=== PATIENT | female | born 2000 | race Caucasian/White ===

== ENCOUNTER 2019-09-28 10:06 | Emergency (ER) | payer OTHER, SELFPAY ==
[2019-09-28] VITALS (9 sets, daily range): BP systolic 126–153; BP diastolic 83–108; PULSE 54–81; RESP 15–23; TEMP 36.7; O2SAT 96–100
--- NOTE | ~2019-09-28 | CT_ITS ---
EXAMINATION: CT abdomen pelvis w con EXAM DATE: 09/28/2019 11:26 INDICATION: Right lower quadrant pain. TECHNIQUE: Spiral CT of the abdomen and pelvis was performed following intravenous injection of 100 m L Omnipaque 350. Axial, coronal and sagittal images were reviewed. The dose-length product (DLP) fo r this examination was 263.22 mGy-cm. The exposure was tailored according to patient size (auto mA e xposure control), and iterative reconstruction (ASIR) was used as additional dose reduction technique . There is no prior study for comparison. FINDINGS: There is moderate nonspecific periportal edema. No focal liver lesions portal or hepatic ve nous thrombosis. Spleen, adrenal glands are unremarkable. Gallbladder is unremarkable. No biliary o bstruction. There is a 4 mm calcification in the right side of the pelvis probably a distal right ure teral stone, about 2 cm from the ureterovesicular junction as seen on axial image 149. There is mild right-sided hydronephrosis, and delayed right-sided nephrogram with moderate perinephric fat strandin g. The uterus is anteverted and morphologically normal. The bladder is unremarkable. There is no r etroperitoneal or pelvic lymphadenopathy. Possible identification of an unremarkable appendix. No pericecal inflammation. The stomach and smal l bowel are unremarkable. There is expected amount of colonic stool. No free intraperitoneal gas. The heart is normal in size. There are no pericardial or pleural effusions. The lung bases are un remarkable. The bones are unremarkable. IMPRESSION: 1. Probable right distal ureteral 4 mm stone. Mild hydronephrosis, delayed nephrogram, evidence of o bstructive nephropathy. 2. Moderate nonspecific periportal edema. Reviewed, dictated and finalized at location A. IMPRESSION: 1. Probable right distal ureteral 4 mm stone. Mild hydronephrosis, delayed nep hrogram, evidence of obstructive nephropathy. 2. Moderate nonspecific periportal edema.
--- NOTE | 2019-09-28 10:15 | ED.GENADULT ---
HPI - General Adult General Chief complaint: Nausea/Vomiting/Diarrhea Stated complaint: N/V/D X1D Time Seen by Provider: 09/28/19 10:12 Source: patient Mode of arrival: ambulatory Limitations: no limitations History of Present Illness HPI narrative: Patient is a 18-year-old female who reports to the emergency department referred from [place] urgent [facility] for evaluation of right lower quadrant abdominal pain and right flank pain. Rated 7 out of 10 in severity, dull, aching in nature, at times it is sharp it is worse with movement. No fever or chills, does report some nausea. No diarrhea or constipation. Patient reports hematuria, currently menstruating. She denies any dysuria, no vaginal discharge. Related Data Home Medications Medication Instructions Recorded Confirmed ondansetron 09/28/19 pantoprazole [Protonix] mg 09/28/19 Allergies Allergy/AdvReac Type Severity Reaction Status Date / Time No Known Allergies Allergy Verified 09/28/19 10:21 Review of Systems Review of Systems: Narrative: CONSTITUTIONAL: Denies fever, chills, or sweats. ENT: Denies rhinorrhea, congestion, sore throat, or otalgia. CARDIOVASCULAR: Denies chest pain, palpitations, or edema. RESPIRATORY: Denies cough or dyspnea. GASTROINTESTINAL: Reports abdominal pain, nausea GENITOURINARY: Denies dysuria SKIN: Denies rash or itching. MUSCULOSKELETAL: Denies back pain, joint pain, or myalgia. NEUROLOGIC: Denies headache, numbness, or weakness. [facility] Social History Social History Gender identity (if verbalized by the patient): Female Exam Narrative: Exam Narrative: GENERAL: Awake, alert, conversant, uncomfortable. HEAD: Normocephalic, atraumatic. EYES: PERRLA and EOMI. ENT: Nares clear, no rhinorrhea or epistaxis. Mucous membranes moist. NECK: Supple. CHEST: No respiratory distress, breathing even and non labored HEART: Regular rate, sinus rhythm ABDOMEN:Non distended, ttp in RLQ, positive right flank tenderness EXTREMITIES: Normal range of motion. No edema. SKIN: Warm, dry, no rash. NEURO:No focal deficits. Alert and oriented x3 Course Vital Signs Vital signs: Vital Signs Temperature 36.7 C 09/28/19 10:15 Pulse Rate 64 09/28/19 10:15 Respiratory Rate 23 H 09/28/19 10:15 Blood Pressure 127/83 09/28/19 10:15 Pulse Oximetry 100 09/28/19 10:15 Temperature 36.7 C 09/28/19 10:15 Pulse Rate 54 L 09/28/19 12:01 Respiratory Rate 16 09/28/19 12:01 Blood Pressure 137/87 09/28/19 12:01 Pulse Oximetry 96 09/28/19 12:01 Medical Decision Making MDM Narrative Medical decision making narrative: Patient presented for evaluation of abdominal pain and flank pain from an urgent care. At the time of assessment, ABCs are intact and vital signs are stable. Patient with right lower quadrant tenderness and right flank tenderness on exam. Laboratory results are reassuring. No electrolyte derangement, no acute kidney injury, no UTI. CT scan reveals 4 mm right-sided ureteral stone. Mild hydronephrosis. Patient felt much improved following IV fluids, antiemetic. She is able to tolerate oral intake. Discussed with patient at length regarding course of symptoms, instructions for follow-up, she was given urology follow-up and discharged home in stable condition advised to return should her pain recur or worsen. Differential Diagnosis Differential Diagnosis: Kidney infection, UTI, nephrolithiasis, appendicitis Medical Records Medical records reviewed: Yes I reviewed the patient's medical records. Vital Signs Vital Signs: Vital Signs Temperature 36.7 C 09/28/19 10:15 Pulse Rate 64 09/28/19 10:15 Respiratory Rate 23 H 09/28/19 10:15 Blood Pressure 127/83 09/28/19 10:15 Pulse Oximetry 100 09/28/19 10:15 Temperature 36.7 C 09/28/19 10:15 Pulse Rate 54 L 09/28/19 12:01 Respiratory Rate 16 09/28/19 12:01 Blood Pressure 137/87 09/28/19 12:01 Pulse Oximetry 96 09/28/19 12:01 Lab Data
[2019-09-28] MEDS: ONDANSETRON INJ 4 MG/2 ML VIAL IV PUSH (10:37)
[2019-09-28] MEDS: SODIUM CHLORIDE 0.9% IV 1,000 ML 999 ML IV CONT (10:37)
[2019-09-28] MEDS: MORPHINE SULFATE 4 MG/ML INJ IV PUSH (10:38)
[2019-09-28 10:52] LABS: Basophils Percent Auto 0.1 % (0.2-1.2); Eosinophils Percent Auto 0.2 % (0-4.4); Hematocrit 37.5 % (37.0-47.0); Hemoglobin 12.6 g/dL (12.0-15.0); Immature Granulocyte Absolute 0.03 K/mm3 (0.00-0.031); Immature Granulocyte Percent A 0.3 % (0-0.5); Lymphocytes Percent Auto 11.9 % (18.3-44.2); Mean Corpuscular HGB Conc 33.6 g/dl (32-36); Mean Corpuscular Hemoglobin 28.1 pg (26-34); Mean Corpuscular Volume 83.7 fl (80-100); Mean Platelet Volume 10.3 fl (7.4-10.4); Monocytes Absolute Auto 0.4 K/mm3 (0.1-0.6); Monocytes Percent Auto 4.3 % (2.6-8.5); Neutrophils Absolute Auto 7.7 K/mm3 (1.3-6.7); Neutrophils Percent Auto 83.2 % (45.5-73.1); Platelet Count Result 210 k/mm3 (150-375); Red Blood Count 4.48 M/mm3 (4.2-5.4); Red Cell Distribution Width 12.9 % (11.5-14.5); White Blood Count 9.2 K/mm3 (4.5-10.0)
[2019-09-28 10:58] LABS: Add Urine Microscopic? YES; Appearance Urine Cloudy (Clear); Bilirubin Urine Negative (Negative); Blood Urine 3+ (Negative); Color Urine Yellow (Yellow); Glucose Urine UA Negative (Negative); Ketones Urine Negative (Negative); Leukocyte Esterase Ur Trace LEU/UL (Negative); Mucus Urine Rare /lpf; Nitrate Urine Negative (Negative); Protein Urine 2+ mg/dL (Negative); RBC Urine >75 /hpf (0-2); Specific Grav Ur 1.024 (1.001-1.035); Squamous Epithelial Cell Urine Many /hpf (Few); Urobilinogen Urine Negative mg/dL (<2.0); WBC Urine 21-30 /hpf
[2019-09-28 11:05] LABS: Alanine Aminotransferase 13 U/L (4-35); Albumin Level 4.6 g/dL (3.7-5.6); Alkaline Phosphatase 80 U/L (45-116); Aspartate Amino Transferase 22 U/L (14-36); Bilirubin,Total 0.4 mg/dL (0.2-1.3); Blood Urea Nitrogen 13 mg/dL (8-21); Calcium 9.4 mg/dL (8.9-10.7); Carbon Dioxide 22 mmol/L (22-30); Chloride 104 mmol/L (98-107); Estimated CRCL calculation 66 ml/min; Estimated Glomerular Filt Rate > 60; Glucose 127 mg/dL (65-105); Potassium 3.9 mmol/L (3.4-5.0); Sodium 135 mmol/L (134-143)
[2019-09-28] MEDS: KETOROLAC 15 MG/ML VIAL (*BKC) IV PUSH (11:55)
--- NOTE | 2019-09-28 11:56 | PC.NURSE ---
Pt assisted back from bathroom, states she feels that she is emptying more from her bladder at present.
[2019-09-28 12:31] LABS: Lipase 49 U/L (23-300)
--- NOTE | 2019-09-28 12:34 | PC.NURSE ---
Pt resting comfortably on stretcher, states pain has improved at present. Ice chips po.
== END 2019-09-28 13:12 | disposition home or self-care (01) ==
PROVIDERS: Emergency Provider Emergency Medicine
DX: N23 Unspecified renal colic (principal); N13.30 Unspecified hydronephrosis
CPT/HCPCS: 36415; 74177; 80053; 81001; 81025; 83690; 85025; 87086; 87088; 96361; 96374; 96375; 99284; J1885; J2270; J2405; J3010; J7030; Q9967

== ENCOUNTER 2019-12-17 11:40 | Outpatient (CLI) | payer OTHER, SELFPAY ==
--- NOTE | ~2019-12-17 | XR_ITS ---
EXAMINATION: XR abdomen/kub 1V EXAM DATE: 12/17/2019 12:04 INDICATION: Right ureteral stone. TECHNIQUE: Frontal projection of the upper abdomen, frontal projection lower abdomen/pelvis for inter pretation. Correlation is made to prior CT examination from 09/28/2019. FINDINGS: There is expected amount of colonic stool and gas. No small bowel dilation, nonobstructiv e bowel gas pattern. There are no suspicious calcifications identified. There is no organomegaly suspected. The bones are unremarkable. There is no free intraperitoneal air. The lung bases are clear. IMPRESSION: Unremarkable abdomen x-ray exam. Reviewed, dictated and finalized at location A.
== END 2019-12-17 11:41 | disposition home or self-care (01) ==
LOC: ANHIMG 11:47
PROVIDERS: PCP Urology; Visit Provider Urology
DX: N20.1 Calculus of ureter (principal)
CPT/HCPCS: 74018

== ENCOUNTER 2020-12-28 11:03 | Emergency (ER) | payer OTHER, SELFPAY ==
--- NOTE | 2020-12-28 11:08 | ED.URI ---
HPI - URI/Sore Throat General Chief Complaint: Upper Respiratory Infection Stated Complaint: cough/runny nose/itching throat Time Seen by Provider: 12/28/20 11:08 Source: patient and RN notes reviewed History of Present Illness HPI Narrative: Patient is a 20-year-old female who presents the urgent care with complaints of sore throat, runny nose and cough. Patient states that started 2 days ago and she has been taking Mucinex and Claritin. Patient has had a Covid vaccine and denies of any recent exposures to strep or Covid. Denies of any fever, chills, nausea, vomiting. Patient states that she does have typical allergies . No other acute complaints. No acute distress noted. Patient aware of the plan of care. Some parts of this dictation were generated by voice recognition software and may contain typographical and/or grammatical inaccuracies. Related Data Allergies Allergy/AdvReac Type Severity Reaction Status Date / Time No Known Allergies Allergy Verified 09/28/19 10:21 Review of Systems Review of Systems: CONSTITUTIONAL: Denies fever, chills, or sweats. EYES: Denies visual changes, redness, or discharge. ENT: Reports of rhinorrhea, congestion CARDIOVASCULAR: Denies chest pain, palpitations, or edema. RESPIRATORY: Reports of cough without dyspnea GASTROINTESTINAL: Denies abdominal pain, nausea, vomiting, or diarrhea. GENITOURINARY: Denies dysuria or hematuria. SKIN: Denies rash or itching. MUSCULOSKELETAL: Denies back pain, joint pain, or myalgia. NEUROLOGIC: Denies headache, numbness, or weakness. All other systems reviewed are negative, except as documented in HPI. PMFSH Social History Social History Gender identity (if verbalized by the patient): Female Comments At the time of my signature, I reviewed and agree with the nursing past medical, surgical, social, and family history. There is no relevant family history pertinent to the patient complaint. Exam Narrative: GENERAL: This is a well-nourished, well-developed patient, in no apparent distress. HEAD: normocephalic, atraumatic. EYES: PERRL. Sclera clear/white. Vision is grossly intact. EARS: External ears normal, auditory canals clear and without drainage, TMs normal without perforation. Hearing grossly intact. NOSE: External nose normal with no obvious nasal discharge, nares without redness, clear rhinorrhea. THROAT: Mucous membranes moist, posterior pharynx clear. Moderate postnasal drainage NECK: Neck supple, non-tender without lymphadenopathy CARDIOVASCULAR: Regular rate and rhythm without murmurs, gallops, or rubs. RESPIRATORY: Clear to auscultation. Breath sounds equal bilaterally. No wheezes, rales, or rhonchi. SKIN: warm, intact with no suspicious lesions or rash, good texture and turgor. NEURO: awake, alert, and oriented to person, place and time. There were no obvious focal neurologic abnormalities. EXTREMITIES: No clubbing, cyanosis, or edema. Course Vital Signs Vital signs: Vital Signs Temperature 98.1 F 12/28/20 11:15 Pulse Rate 94 12/28/20 11:15 Respiratory Rate 16 12/28/20 11:15 Blood Pressure 136/86 12/28/20 11:15 Pulse Oximetry 100 12/28/20 11:15 Temperature 98.1 F 12/28/20 11:15 Pulse Rate 94 12/28/20 11:15 Respiratory Rate 16 12/28/20 11:15 Blood Pressure 136/86 12/28/20 11:15 Pulse Oximetry 100 12/28/20 11:15 Reviewed MDM - URI/Sore Throat MDM Narrative Medical decision making narrative: Advised the patient to complete the steroid regimen as prescribed. Use Flonase nasal spray daily in conjunction with Claritin/Zyrtec or Benadryl. Increase your water intake and rest. Use a humidifier at night. Avoid sleeping with the windows open or a fan. If you develop any increase in symptoms associated with fever, shortness of breath or persistent cough?follow-up with a Covid swab and/or your PCP/ER if necessary. Follow-up with your PCP within 2 to 5 days or for worsening symptoms or failure to improve.
[2020-12-28 11:15] VITALS: BP 136/86; PULSE 94; RESP 16; TEMP 36.7; O2SAT 100
== END 2020-12-28 11:35 | disposition home or self-care (01) ==
PROVIDERS: Emergency Provider Nurse Practitioner Family
DX: J06.9 Acute upper respiratory infection, unspecified (principal)
CPT/HCPCS: 99213; G0463

== ENCOUNTER 2021-06-09 06:37 | Emergency (ER) | payer OTHER, SELFPAY ==
[2021-06-09] VITALS (18 sets, daily range): BP systolic 112–113; BP diastolic 74–79; PULSE 64–85; RESP 15–27; TEMP 36.4–37; O2SAT 98–100
--- NOTE | ~2021-06-09 | CT_ITS ---
EXAMINATION: CT abdomen pelvis w con INDICATION: Abdominal pain TECHNIQUE: Computed tomographic images of the abdomen and pelvis were obtained after the administrati on of 100 cc of Omnipaque 350 intravenous contrast. The dose-length product (DLP) was 283.96 mGy-cm. Automated exposure control and iterative reconstruction technique were employed. COMPARISON: 09/28/2019 FINDINGS: The lung bases are clear. The heart size is normal. The liver, spleen, pancreas, gallbladde r, and adrenal glands are normal. The kidneys are unremarkable. No pathologically enlarged abdominal or pelvic lymph nodes are identified. There is no free intraperitoneal gas or evidence of bowel obstr uction. The appendix is normal. IMPRESSION: 1. No CT correlate for the patient's symptoms. Reviewed, dictated and finalized at location B. NE CONTENT EDITOR
--- NOTE | ~2021-06-09 | US_ITS ---
EXAMINATION: US pelvic complete w TV DATE: 06/09/2021 13:04 INDICATION: Low abdominal pain. TECHNIQUE: Multiple transabdominal and transvaginal sonographic images of the pelvis were obtained. COMPARISON: CT abdomen and pelvis 06/09/2021 FINDINGS: TRANSABDOMINAL ULTRASOUND: There is no free fluid in the pelvis. TRANSVAGINAL ULTRASOUND: The uterus measures 6.7 x 2.9 x 4.4 cm. The endometrial complex measures 5 mm in thickness. The right ovary measures 3.3 x 2.1 x 2.2 cm. The left ovary measures 3.6 x 2.4 x 1.7 cm. There is normal vascu lar flow in the ovaries. IMPRESSION: 1. Normal pelvis. Reviewed, dictated and finalized at location A. TEGIC DEBRIEFING SPECIALIST IMPRESSION: 1. Normal pelvis.
--- NOTE | 2021-06-09 07:25 | ED.BACK ---
HPI - Back Pain/Injury General Chief Complaint: Back Pain/Injury Stated Complaint: lower back pain Time Seen by Provider: 06/09/21 07:02 Source: RN notes reviewed History of Present Illness HPI Narrative: Patient presents emergency department from home for lower back pain. Patient states symptoms began upon awaking this morning the pain is across the bilateral lower back does not radiate pain is worse with any movement of the torso. Patient denies any direct trauma or injury to the back states that she was feeling fine last night she denies any fevers or chills, abdominal pain nausea or vomiting or any other symptoms states she took ibuprofen at home with minimal relief per nursing staff when patient's blood was being drawn she did have a vasovagal episode Related Data Allergies Allergy/AdvReac Type Severity Reaction Status Date / Time No Known Allergies Allergy Verified 09/28/19 10:21 Review of Systems Review of Systems: Gen.: Denies fevers or chills ENT: Denies congestion Respiratory: Denies shortness of breath or cough CV: Denies chest pain or palpitations GI: Denies abdominal pain nausea, emesis or diarrhea denies burning, urgency, frequency or hematuria Musculoskeletal: See HPI Neuro: Denies numbness, tingling, weakness or focal weakness Skin: Denies rash Except as documented, all other systems reviewed and negative [facility] Past Medical History Medical History (Updated 06/09/21 @ 13:38 by Vega Chavarria DO) Patient denies significant medical history Social History Social History (Updated 06/09/21 @ 07:29 by Vega Chavarria DO) Smoking status: Never smoker Gender identity (if verbalized by the patient): Female Exam Narrative: APPEARANCE: No acute distress, nontoxic, resting in bed EYES: EOMI HEENT: Normocephalic, atraumatic, OMM RESPIRATORY: No respiratory distress Clear to auscultation bilaterally with no rhonchi wheezing or rales. CARDIOVASCULAR: Regular rate and rhythm without murmurs rubs or gallops. ABDOMINAL: Soft, nontender, nondistended, no rebound or guarding MUSCULOSKELETAl: Moves all extremities. No clubbing, cyanosis or edema. Back: No midline thoracic lumbar tenderness palpation tender palpation bilateral paravertebral muscles L3-5 pain worse with forward flexion and rotation of the torso NEURO: Awake and alert. Following commands, speech normal, no focal deficits SKIN:: Warm, dry. No rashes lesions or abrasions PSYCHIATRIC: Normal affect/mood, Course Vital Signs Vital signs: Vital Signs Temperature 97.6 F 06/09/21 06:45 Pulse Rate 85 06/09/21 06:45 Respiratory Rate 16 06/09/21 06:45 Blood Pressure 112/79 06/09/21 06:45 Pulse Oximetry 100 06/09/21 06:45 Temperature 97.6 F 06/09/21 06:45 Pulse Rate 79 06/09/21 10:49 Respiratory Rate 18 06/09/21 10:49 Blood Pressure 112/79 06/09/21 06:45 Pulse Oximetry 100 06/09/21 06:45 MDM - Back Pain/Injury Lab Data Result diagrams: 06/09/21 07:16 06/09/21 08:44 Labs: Lab Results 06/09/21 06/09/21 06/09/21 Range/Units 07:16 07:18 07:52 WBC 6.5 (4.5-10.0) K/mm3 RBC 4.39 (4.2-5.4) M/mm3 Hgb 13.0 (12.0-15.0) g/dL Hct 40.0 (37.0-47.0) % MCV 91.1 (80-100) fl MCH 29.6 (26-34) pg MCHC 32.5 (32-36) g/dl RDW 12.2 (11.5-14.5) % Plt Count 237 (150-375) k/mm3 MPV 10.0 (7.4-10.4) fl Immature Gran % (Auto) 0.3 (0-0.5) % Neut % (Auto) 43.2 L (45.5-73.1) % Lymph % (Auto) 44.8 H (18.3-44.2) % [place] % (Auto) 9.2 H (2.6-8.5) % Eos % (Auto) 2.0 (0-4.4) % Baso % (Auto) 0.5 (0.2-1.2) % Lymph # (Auto) 2.91 (0.9-3.2) K/mm3 [place] # (Auto) 0.6 (0.1-0.6) K/mm3 Eos # (Auto) 0.1 (0-0.3) K/mm3 Baso # (Auto) 0.0 (0.0-0.1) K/mm3 Abs Immat Gran (auto) 0.02 (0.00-0.031) K/mm3 Absolute Neuts (auto) 2.8 (1.3-6.7) K/mm3 Absolute Nucleated RBC 0.0 (0.0-0.012) K/mm3 Nucleated RBC % 0.0
[2021-06-09 07:28] LABS: Basophils Percent Auto 0.5 % (0.2-1.2); Eosinophils Absolute Auto 0.1 K/mm3 (0-0.3); Immature Granulocyte Absolute 0.02 K/mm3 (0.00-0.031); Immature Granulocyte Percent A 0.3 % (0-0.5); Immature Platelet Fraction Pct 3.1 % (0.9-11.2); Lymphocytes Absolute Auto 2.91 K/mm3 (0.9-3.2); Lymphocytes Percent Auto 44.8 % (18.3-44.2); Mean Corpuscular HGB Conc 32.5 g/dl (32-36); Mean Corpuscular Hemoglobin 29.6 pg (26-34); Mean Corpuscular Volume 91.1 fl (80-100); Monocytes Absolute Auto 0.6 K/mm3 (0.1-0.6); Monocytes Percent Auto 9.2 % (2.6-8.5); Neutrophils Absolute Auto 2.8 K/mm3 (1.3-6.7); Neutrophils Percent Auto 43.2 % (45.5-73.1); Platelet Count Result 237 k/mm3 (150-375); Red Blood Count 4.39 M/mm3 (4.2-5.4); Red Cell Distribution Width 12.2 % (11.5-14.5); White Blood Count 6.5 K/mm3 (4.5-10.0)
--- NOTE | 2021-06-09 07:28 | ECG_ITS ---
Measurements Intervals [place] Rate: 66 P: 32 GA: 157 QRS: 75 QRSD: 100 T: 49 QT: 377 QTc: 396 Interpretive Statements SINUS RHYTHM NORMAL ECG NO PREVIOUS ECG AVAILABLE FOR COMPARISON Electronically Signed On 06-09-2021 13:17:55 JAWBONE BREAKER by Cameron Krause M.D.
[2021-06-09 07:50] LABS: Beta HCG Quantitative < 2.39 mIU/ML
[2021-06-09 08:12] LABS: Add Urine Microscopic? YES; Appearance Urine Cloudy (Clear); Bilirubin Urine Negative (Negative); Blood Urine 3+ (Negative); Color Urine Red (Yellow); Glucose Urine UA Negative (Negative); Ketones Urine Trace mg/dL (Negative); Leukocyte Esterase Ur Trace LEU/UL (Negative); Mucus Urine Few /lpf; Nitrate Urine Negative (Negative); Protein Urine 3+ mg/dL (Negative); RBC Urine >75 /hpf (0-2); Squamous Epithelial Cell Urine Many /hpf (Few); Urobilinogen Urine Negative mg/dL (<2.0); WBC Urine 21-30 /hpf
[2021-06-09 08:31] LABS: Specific Grav Ur 1.033 (1.001-1.035)
[2021-06-09 10:04] LABS: Alanine Aminotransferase 12 U/L (4-35); Albumin Level 3.8 g/dL (3.5-5.1); Alkaline Phosphatase 58 U/L (38-126); Anion Gap 7 mmol/L (8-16); Aspartate Amino Transferase 25 U/L (14-36); Bilirubin,Total 0.4 mg/dL (0.2-1.3); Blood Urea Nitrogen 11 mg/dL (7-17); Calcium 7.3 mg/dL (8.4-10.2); Carbon Dioxide 23 mmol/L (22-30); Chloride 110 mmol/L (98-107); Estimated CRCL calculation 104 ml/min; Estimated Glomerular Filt Rate > 60; Glucose 84 mg/dL (65-110); Potassium 3.2 mmol/L (3.4-5.0); Sodium 140 mmol/L (137-145)
[2021-06-09] MEDS: diazePAM INJ (*CRX) 10 MG/2 ML SYRINGE 5 MG IV PUSH (11:31)
== END 2021-06-09 14:12 | disposition home or self-care (01) ==
PROVIDERS: Emergency Provider Emergency Medicine
DX: M54.50 Low back pain, unspecified (principal)
CPT/HCPCS: 36415; 74177; 76830; 76856; 80053; 81001; 81025; 84702; 85025; 85055; 87077; 87086; 87088; 93005; 96374; 96375; 99284; J0131; J3360; Q9967

== ENCOUNTER 2021-12-22 10:35 | Emergency (ER) | payer OTHER, SELFPAY ==
--- NOTE | 2021-12-22 10:38 | ED.URI ---
HPI - URI/Sore Throat General Chief Complaint: Upper Respiratory Infection Stated Complaint: SORE THROAT Time Seen by Provider: 12/22/21 10:38 Source: patient Mode of arrival: ambulatory Limitations: no limitations History of Present Illness HPI Narrative: Ms. Malagon is a 21-year-old female patient presenting to the clinic today with complaints of a sore throat that began last night. She reports no fever or chills. She has had a lot of nasal congestion and drainage. No known exposure to anyone COVID, flu, or strep. MD elicited complaint: sore throat and nasal congestion Related Data Home Medications Medication Instructions Recorded Confirmed No Home Medications 12/22/21 12/22/21 Allergies Allergy/AdvReac Type Severity Reaction Status Date / Time No Known Allergies Allergy Verified 12/22/21 10:48 Review of Systems Review of Systems: Pertinent positives per HPI. Patient denies any fever, chills, rash, headache, visual changes, dizziness, cough, shortness of breath, chest pain, palpitations, nausea, vomiting, diarrhea, constipation, abdominal pain, or any urinary issues. [facility] Past Medical History Medical History Patient denies significant medical history Social History Social History Smoking status: Never smoker Gender identity (if verbalized by the patient): Female Comments At the time of my signature, I reviewed and agree with the nursing past medical, surgical, social, and family history. There is no relevant family history pertinent to the patient complaint. Exam Narrative: General: Well-developed, well nourished, in no apparent distress Head: Normocephalic, atraumatic Eyes: Pupils equally round and reactive to light bilaterally, EOM intact, sclera and conjunctive clear, no discharge, lids normal Ears: TMs intact and clear, ear canals clear, no drainage, grossly hearing normal. Nose: Nares patent, clear nasal discharge, no inflammation, no sinus tenderness. Mouth: Oral pharynx without lesions or masses, good dentition, MMM. Oropharynx red, postnasal drip Neck: Supple, trachea midline, no enlargement of anterior or posterior cervical nodes, no thyroid masses or goiter palpable. Cardio: Regular rate and rhythm, s1 and s2 normal, no murmur appreciated. Resp: Clear to auscultation bilaterally, no rhonchi, rales, wheezing or rubs Course Course Emergency Course: Portions of this record may have been created with voice recognition software. Level of Care: Express Care Visit Vital Signs Vital signs: Vital Signs Oxygen Delivery Room Air 12/22/21 10:44 Temperature 37.4 C 12/22/21 10:56 Pulse Rate 80 12/22/21 10:56 Respiratory Rate 20 12/22/21 10:56 Blood Pressure 125/82 12/22/21 10:56 Pulse Oximetry 100 12/22/21 10:56 Oxygen Delivery Room Air 12/22/21 10:44 Vital signs reviewed MDM - URI/Sore Throat MDM Narrative Medical decision making narrative: At the time of visit patient is resting comfortably on the exam table. Strep screen was negative clinic today. I suspect the patient has pharyngitis with postnasal drip. Supportive measures were discussed with the patient and she voiced understanding of discharge instructions. Differential Diagnosis Differential diagnosis: Likely upper respiratory infection, otitis media, sinusitis, viral infection, bronchitis, influenza, pharyngitis and other Lab Data Labs: Strep Screen Presumptive Negative *(Reference Range: Negative)* Discharge Plan Discharge Clinical Impression: Post-nasal drip Pharyngitis Qualifiers: Pharyngitis/tonsillitis etiology: unspecified etiology Qualified Code(s): J02.9 - Acute pharyngitis, unspecified Patient Disposition: Home, Self-Care Condition: Stable Instructions: Antibiotic Form, Phary
[2021-12-22 10:56] VITALS: BP 125/82; PULSE 80; RESP 20; TEMP 37.4; O2SAT 100
== END 2021-12-22 11:03 | disposition home or self-care (01) ==
PROVIDERS: Emergency Provider Nurse Practitioner Family
DX: R09.82 Postnasal drip (principal); J02.9 Acute pharyngitis, unspecified
CPT/HCPCS: 87081; 87880; 99213; G0463

== ENCOUNTER 2022-01-19 17:44 | Emergency (ER) | payer OTHER, SELFPAY ==
[2022-01-19 17:51] VITALS: BP 123/77; PULSE 65; RESP 20; TEMP 37.3; O2SAT 100
--- NOTE | 2022-01-19 18:13 | ED.SOB ---
HPI - SOB/Dyspnea General Chief Complaint: Shortness of Breath/Dyspnea Stated Complaint: trouble breathing Time Seen by Provider: 01/19/22 18:05 Source: patient Mode of arrival: ambulatory Limitations: no limitations History of Present Illness HPI Narrative: 21 y/o female presented for c/o shortness of breath for 4 days. States it feels like she cannot take a deep breath, and when she does she feels a sharp stabbing pain across upper back which started today. Pain is worse on the right upper back. Endorses sinus congestion and allergies for several months, and has been compliant with Claritin. States she works at a [employer], and while she is normally able to walk around all day, after just a few hours she felt she needed to sit to catch her breath this week. She denies associated cough, wheezing, chest pain or palpitations, n/v/d/f/c. Related Data Allergies Allergy/AdvReac Type Severity Reaction Status Date / Time No Known Allergies Allergy Verified 01/19/22 18:01 Review of Systems Review of Systems: CONSTITUTIONAL: Denies body aches, fever, chills, or sweats. EYES: Denies visual changes, redness, or discharge. ENT: Denies rhinorrhea, congestion, sore throat, or otalgia. CARDIOVASCULAR: Denies chest pain, palpitations, or edema. RESPIRATORY: denies cough, wheezing. SKIN: Denies rash, itching, or wounds. MUSCULOSKELETAL: Denies back pain, joint pain, or myalgia. NEUROLOGIC: Denies headache, numbness, tingling, or weakness. All systems reviewed & are unremarkable except as noted in HPI and below PMFSH Past Medical History Medical History Patient denies significant medical history Social History Social History Smoking status: Never smoker Gender identity (if verbalized by the patient): Female Comments At time of signature, I have reviewed and agree with nursing past medical, surgical, social and family history unless otherwise noted. Please see nursing chart for further information. There is no relevant family history pertinent to the presenting complaint Exam Narrative: GENERAL: Well-appearing, in no acute distress. EYES: EOMI. No redness or drainage. Conjunctivae normal. ENT: Mucous membranes pink and moist. No rhinorrhea. TMs normal bilaterally. Throat normal. Uvula midline. NECK: Normal AROM. Supple. CHEST: No respiratory distress. Speaks in full sentences. LCTAB. Right upper back without bruising or lesions; reports it feels better with palpation to the site, nontender. HEART: Regular rate and rhythm. No murmur appreciated. ABDOMEN: Soft, nontender, nondistended, normal active bowel sounds. EXTREMITIES: Normal range of motion. No edema. SKIN: Warm, dry, no rash. Capillary refill normal. Normal skin turgor. NEURO: Alert and oriented x3. PSYCH: Normal affect. Course Course Emergency Course: Patient is aware of diagnosis, understands and agrees to treatment plan. Anticipatory guidance given. Patient agrees to follow-up as directed and is aware of reasons to seek care at the emergency department. Portions of this record may have been created with voice recognition software Level of Care: Express Care Visit Vital Signs Vital signs: Vital Signs Oxygen Delivery Room Air 01/19/22 17:50 Temperature 99.1 F 01/19/22 17:51 Pulse Rate 65 01/19/22 17:51 Respiratory Rate 20 01/19/22 17:51 Blood Pressure 123/77 01/19/22 17:51 Pulse Oximetry 100 01/19/22 17:51 Oxygen Delivery Room Air 01/19/22 17:50 MDM - SOB/Dyspnea MDM Narrative Medical decision making narrative: Exam unremarkable. Will hold off on imaging at this time. Advised supportive measures and signs/symptoms to go to the ER. Pt is appropriate for outpt treatment and f/u. She is scheduled to establish with PCP in 2 weeks. Differential Diagnosis Differential diagnosis: Likely asthma with exacer
== END 2022-01-19 18:30 | disposition home or self-care (01) ==
PROVIDERS: Emergency Provider Nurse Practitioner Family
DX: R06.02 Shortness of breath (principal)
CPT/HCPCS: 99213; G0463